=== PATIENT | female | born 1990 | race American Indian/Alaskan Native ===

== ENCOUNTER 2017-02-19 07:49 | Emergency (ER) | payer SELFPAY ==
[2017-02-19 07:54] VITALS: BMI 21.9
[2017-02-19] MEDS ORDERED: Albuterol-Ipratrop 3 mg / 0.5 (3 ml) UD ONE ×2 (08:08→08:26)
[2017-02-19] MEDS ORDERED: Albuterol-Ipratrop 3 mg / 0.5 (3 ml) UD INH STA ×3 (08:14→08:15)
[2017-02-19] MEDS ORDERED: MethylPREDNISolone 40 mg Vial IVP STA (08:14)
--- NOTE | 2017-02-19 08:17 | C.PDOC ---
Time Seen by Provider: 02/19/17 08:10 Chief Complaint (Nursing): Shortness Of Breath Past Medical History Vital Signs: Last Vital Signs Temp 97.6 F 02/19/17 07:55 Pulse 86 02/19/17 07:55 Resp 18 02/19/17 07:55 BP 132/74 02/19/17 07:55 Pulse Ox 98 02/19/17 07:55 - Medical History PMH: Asthma, Bronchitis Denies: Chronic Kidney Disease Family History: States: Unknown Family Hx - Social History Hx Alcohol Use: Yes Hx Substance Use: Yes - Immunization History Hx Tetanus Toxoid Vaccination: No Hx Influenza Vaccination: No Hx Pneumococcal Vaccination: No ED Course And Treatment O2 Sat by Pulse Oximetry: 98
--- NOTE | 2017-02-19 08:18 | C.PDOC ---
History Of Present Illness 26 yo female, hx of asthma, previous hospitalized x 1, presents with wheezing. as per pt, started 3am, she attributes to "new humidifier". no fevers, mild cough, no sore throat, rhinorrhea, or other complaints Time Seen by Provider: 02/19/17 08:10 Chief Complaint (Nursing): Shortness Of Breath Past Medical History Reviewed: Historical Data, Nursing Documentation, Vital Signs Vital Signs: Last Vital Signs Temp 97.6 F 02/19/17 07:55 Pulse 86 02/19/17 07:55 Resp 20 02/19/17 08:20 BP 132/74 02/19/17 07:55 Pulse Ox 98 02/19/17 10:33 - Medical History PMH: Asthma, Bronchitis Denies: Chronic Kidney Disease Family History: States: Unknown Family Hx - Social History Hx Alcohol Use: Yes Hx Substance Use: Yes - Immunization History Hx Tetanus Toxoid Vaccination: No Hx Influenza Vaccination: No Hx Pneumococcal Vaccination: No Review Of Systems Except As Marked, All Systems Reviewed And Found Negative. Respiratory: Positive for: Shortness of Breath Physical Exam - Physical Exam Appears: Well, No Acute Distress Skin: Normal Color, Warm, Dry Eye(s): bilateral: Normal Inspection, PERRL, EOMI Nose: Normal Throat: Normal Neck: Normal Cardiovascular: Rhythm Regular Respiratory: Wheezing Gastrointestinal/Abdominal: Normal Exam Back: Normal Inspection Extremity: Normal ROM ED Course And Treatment - Laboratory Results Result Diagrams: 02/19/17 08:37 02/19/17 08:37 O2 Sat by Pulse Oximetry: 98 Medical Decision Making Medical Decision Making: asthma exacerbation - nebs steriods 915: wheezing improving, pt reports feeling better. cxr neg as read by me will continue to reasesss 1000: pt reassesed. wheezing improved. will continue to reassess 1030: will continue to reassess, wheezing mild 1130: pt reassessed sleeping comfortably. minimal wheezing, pt states feels well to go home. return precautions advised. Disposition - Disposition Referrals: at [facility] [Outside] [facility] [Outside] Disposition: HOME/ ROUTINE Disposition Time: 09:15 Condition: STABLE Additional Instructions: please follow up with your doctor. return to er with worsening symptoms or concerns. Prescriptions: Nebulizer [Aeroeclipse II] 1 each MC Q6 PRN #1 each PRN Reason: Wheezing Albuterol 0.083% [Albuterol 0.083% Inhal Myrtle (2.5 mg/3 ml) UD] 2.5 mg IH Q6 PRN #20 neb PRN Reason: Wheezing Prednisone 50 mg PO DAILY #5 tablet Nebulizer Accessories [Sidestream Mask] 1 each MC Q6 PRN #1 each PRN Reason: Wheezing Instructions: Asthma (ED) - Clinical Impression Clinical Impression: Asthma exacerbation
[2017-02-19 08:45] LABS: BASO # 0.1 K/uL (0.0-0.2); EOS # 0.9 K/uL (0.0-0.7); EOS % 10.3 % (0.0-4.0); HEMATOCRIT 37.3 % (34.0-47.0); LYMPH # 1.4 K/uL (1.0-4.3); LYMPH % 16.3 % (20.0-40.0); MEAN CORPUSCULAR HEMOGLOBIN 26.6 pg (27.0-31.0); MEAN CORPUSCULAR HGB CONC 32.9 g/dL (33.0-37.0); MEAN PLATELET VOLUME 8.2 fL (7.2-11.7); MONO # 0.4 K/uL (0.0-0.8); MONO % 4.9 % (0.0-10.0); NRBC % 0.1 % (0.0-2.0); RED CELL DISTRIBUTION WIDTH 17.6 % (11.5-14.5); WHITE BLOOD COUNT 8.3 K/uL (4.8-10.8)
[2017-02-19 08:46] LABS: RBC URINE < 1 /hpf (0-3); URINE BILIRUBIN NEGATIVE (NEGATIVE); URINE BLOOD NEGATIVE (NEGATIVE); URINE COLOR Colorless (YELLOW); URINE GLUCOSE (UA) NORMAL (Normal); URINE KETONE NEGATIVE (NEGATIVE); URINE LEUKOCYTE ESTERASE NEG Leu/uL (Negative); URINE PROTEIN NEGATIVE (NEGATIVE); URINE UROBILINOGEN NORMAL mg/dL (0.2-1.0); WBC URINE < 1 /hpf (0-5)
[2017-02-19 08:47] LABS: MEAN CELL VOLUME 80.9 fL (81.0-99.0)
[2017-02-19 08:51] LABS: INR 1.1
[2017-02-19 09:06] LABS: CHLORIDE 98 mmol/L (98-107); POTASSIUM 4.2 mmol/L (3.6-5.2); SODIUM 138 mmol/L (132-148)
[2017-02-19 09:08] LABS: AST/SGOT 40 U/L (14-36); BILIRUBIN,TOTAL 0.3 mg/dL (0.2-1.3); CARBON DIOXIDE 27 mmol/L (22-30); GFR AFRICAN-AMERICAN > 60
[2017-02-19 09:09] LABS: ALB/GLOB RATIO 1.2 (1.0-2.1); ALKALINE PHOSPHATASE 53 U/L (38-126); ALT/SGPT 21 U/L (9-52); BLOOD UREA NITROGEN 5 mg/dL (7-17); CALCIUM 9.3 mg/dl (8.6-10.4); GLUCOSE,RANDOM 99 mg/dL (65-105); TOTAL PROTEIN 7.5 g/dL (6.3-8.3)
[2017-02-19 11:52] VITALS: BP 106/49; PULSE 90; RESP 18; TEMP 97.9; O2SAT 100
--- NOTE | 2017-02-19 15:09 | RAD ---
PROCEDURE: CHEST RADIOGRAPH, 1 VIEW HISTORY: SOB COMPARISON: 02/10/2016 FINDINGS: LUNGS: Clear. PLEURA: No pneumothorax or pleural fluid seen. CARDIOVASCULAR: Normal. OSSEOUS STRUCTURES: No significant abnormalities. VISUALIZED UPPER ABDOMEN: Normal. OTHER FINDINGS: None. IMPRESSION: No active disease.
== END 2017-02-19 11:52 | disposition home or self-care (01) ==
LOC: C.ER 07:49
DX: J45.901 Unspecified asthma with (acute) exacerbation (principal)
CPT/HCPCS: 71010; 80053; 81001; 84703; 85025; 85610; 85730; 94640; 96374; 99284; J2920

== ENCOUNTER 2017-04-12 01:40 | Emergency (ER) | payer SELFPAY | END 2017-04-12 02:20 | disposition home or self-care (01) | LOC: C.ER 01:40 | DX: J45.901 Unspecified asthma with (acute) exacerbation (principal) ==

== ENCOUNTER 2018-04-06 03:21 | Emergency (ER) | payer SELFPAY ==
[2018-04-06 03:21] VITALS: BMI 21.9
[2018-04-06] MEDS ORDERED: Albuterol-Ipratrop 3 mg / 0.5 (3 ml) UD ONE ×2 (03:28→03:47)
[2018-04-06] MEDS: Albuterol 0.083% Inhal Sol (2.5 mg/3 mL) UD INH SCH ×2 (03:49→04:18)
--- NOTE | 2018-04-06 04:45 | C.PDOC ---
History Of Present Illness 27 year old female with a Hx of asthma, atopic dermatitis, and seasonal allergies presents to the ER with exacerbation of her asthma. Patient does not have a rescue pump at home, she used flovent with no relief. Denies chest pain, fever, or chills. Time Seen by Provider: 04/06/18 03:37 Chief Complaint (Nursing): Shortness Of Breath History Per: Patient History/Exam Limitations: no limitations Onset/Duration Of Symptoms: Hrs Current Symptoms Are (Timing): Still Present Initiating Event: Other (Seasonal allergies) Current Respiratory Medications: Other (Flovent) Associated Symptoms: Other (Asthma exacerbation). denies: Fever, Chills Recent travel outside of the [place]: No Past Medical History Reviewed: Historical Data, Nursing Documentation, Vital Signs Vital Signs: Last Vital Signs Temp 98.2 F 04/06/18 03:31 Pulse 78 04/06/18 03:31 Resp 26 H 04/06/18 03:46 BP 130/74 04/06/18 03:31 Pulse Ox 95 04/06/18 04:52 - Medical History PMH: Asthma, Bronchitis Family History: States: Unknown Family Hx - Social History Hx Alcohol Use: Yes Hx Substance Use: No - Immunization History Hx Tetanus Toxoid Vaccination: No Hx Influenza Vaccination: No Hx Pneumococcal Vaccination: No Review Of Systems Constitutional: Negative for: Fever, Chills Cardiovascular: Negative for: Chest Pain, Palpitations Respiratory: Positive for: Shortness of Breath, Wheezing Gastrointestinal: Negative for: Nausea, Vomiting Physical Exam - Physical Exam Appears: Non-toxic Skin: Normal Color, Warm, Dry Head: Atraumatic, Normacephalic Eye(s): bilateral: Normal Inspection Oral Mucosa: Moist Chest: Symmetrical, No Tenderness Cardiovascular: Rhythm Regular Respiratory: Decreased Breath Sounds, No Accessory Muscle Use, No Rales, No Rhonchi, Wheezing (Expiratory) Neurological/Psych: Oriented x3, Normal Speech ED Course And Treatment O2 Sat by Pulse Oximetry: 95 (room air) Pulse Ox Interpretation: Normal Progress Note: Prednisone and albuterol nebulizer administered. On reevaluation , patient reports improvement of her symptoms, she is resting comfortably in no acute respiratory distress with clear breath sounds. Will discharge home with Rx and instructions to follow up with PMD or return if symptoms worsen. Disposition Counseled Patient/Family Regarding: Diagnosis, Need For Followup, Rx Given - Disposition Referrals: [facility] at [facility] [Outside] Disposition: HOME/ ROUTINE Disposition Time: 05:42 Condition: STABLE Additional Instructions: Please follow up in clinic Take meds as prescribed Return to ER if worse Prescriptions: Albuterol HFA [Ventolin HFA 90 mcg/actuation (8 g)] 2 puff IH [id number] #1 inhaler predniSONE [Prednisone] 40 mg PO DAILY #8 tab Instructions: Asthma, Adult (DC) Forms: [employer] (Jamaican) - Clinical Impression Clinical Impression: Asthma exacerbation - PA / MECHANICAL SYSTEM TECHNICIAN / Resident Statement MD/DO has reviewed & agrees with the documentation as recorded. - Scribe Statement The provider has reviewed the documentation as recorded by the Scribe Martin Morton All medical record entries made by the Delilahibanita were at my direction and personally dictated by me. I have reviewed the chart and agree that the record accurately reflects my personal performance of the history, physical exam, medical decision making, and the department course for this patient. I have also personally directed, reviewed, and agree with the discharge instructions and disposition.
[2018-04-06 05:59] VITALS: RESP 20
[2018-04-06 06:00] VITALS: BP 128/70; PULSE 80; TEMP 97.8; O2SAT 97
== END 2018-04-06 06:00 | disposition home or self-care (01) ==
LOC: C.ER 03:21
DX: J45.901 Unspecified asthma with (acute) exacerbation (principal)